=== PATIENT | male | born 1950 | race Caucasian/White ===

== ENCOUNTER → 2021-07-16 | Outpatient (CLI) | payer MEDICARE, OTHER ==
--- NOTE | 2021-07-16 17:36 | XRAY Report ---
PROCEDURE: Knee 4 View RT INDICATIONS: R KNEE PX TECHNIQUE: 4 views of the right knee(s) were acquired. COMPARISON: None. FINDINGS: Bones: No acute fracture or dislocation. Moderate tricompartmental degenerative changes of the right knee. There is minimal lateral femorotibial compartment joint space loss on weightbearing views. Katelynn inal osteophytes are present. No suspicious bony lesions. Soft tissues: Small joint effusion. No suspicious soft tissue calcifications. IMPRESSION: Right knee without acute fracture or dislocation. Moderate tricompartmental osteoarthros is. Small joint effusion. Reviewed by: Gregory Bernstein MD on 07/16/2021 5:35 PM PDT Approved by: Gregory Bernstein MD on 07/16/2021 5:35 PM PDT Station ID: [id number]
--- NOTE | 2021-07-16 17:41 | XRAY Report ---
PROCEDURE: Hip w/Pelvis 1V RT INDICATIONS: R HIP PX TECHNIQUE: AP pelvis with lateral view(s) of the right hip(s). COMPARISON: None. FINDINGS: Bones: No acute fractures or dislocations. There are degenerative changes of the bilateral femoral a cetabular joints. Lower lumbar spondylosis. Pelvic ring appears intact. No suspicious bony lesions. Soft tissues: The visualized bowel gas pattern is normal. No suspicious soft tissue calcifications. IMPRESSION: Osteoarthrosis of the bilateral hip joints. Lower lumbar spondylosis. Reviewed by: Gregory Bernstein MD on 07/16/2021 5:40 PM PDT Approved by: Gregory Bernstein MD on 07/16/2021 5:40 PM PDT Station ID: [id number]
== END ==
LOC: DI.N 10:00
PROVIDERS: ATTEND Orthopaedic Surgery
DX: M17.11 Unilateral primary osteoarthritis, right knee (principal); M25.461 Effusion, right knee; M16.0 Bilateral primary osteoarthritis of hip; M47.816 Spondylosis without myelopathy or radiculopathy, lumbar region